=== PATIENT | female | born 1995 | race American Indian/Alaskan Native ===

== ENCOUNTER 2021-06-15 09:54 | Emergency (ER) | payer OTHER ==
[2021-06-15 10:45] VITALS: BP 92/54
--- NOTE | 2021-06-15 11:00 | Emergency Department Report ---
ED Eye Problem HPI - General Chief complaint: Eye Problems Stated complaint: LASH GLUE(R) EYE SHUT Time Seen by Provider: 06/15/21 10:55 Source: patient Mode of arrival: Ambulatory Limitations: No Limitations - History of Present Illness Initial comments: Patient is a 25-year-old female who presents emergency room complaints of right eyelid irritation that occurred 2 days ago. Patient states 2 days ago she used a lash glue that she had never used before. She states that it was itching and irritated and she washed it off. She states that she did eyewash [id number] as well. She states that her eyelids have been swelling, crusting, drainage. She denies anything getting into the eye. She denies any vision changes. She denies any contact lens use. No past medical history. No allergies to medications. - Related Data Previous Rx's Medication Instructions Recorded Last Taken Type Erythromycin [Erythromycin Ophth 1 applicatio OD QID 7 Days #1 tube 06/15/21 Unknown Rx Oint] Allergies Allergy/AdvReac Type Severity Reaction Status Date / Time No Known Allergies Allergy Unverified 06/15/21 10:40 ED Review of Systems ROS: Stated complaint: LASH GLUE(R) EYE SHUT Other details as noted in HPI Comment: All other systems reviewed and negative ED Past Medical Hx - Past Medical History Previous Medical History?: No - Surgical History Past Surgical History?: No - Medications Home Medications: Home Medications Medication Instructions Recorded Confirmed Last Taken Type Erythromycin [Erythromycin Ophth 1 applicatio OD QID 7 Days #1 tube 06/15/21 Unknown Rx Oint] ED Physical Exam - General Limitations: No Limitations General appearance: alert, in no apparent distress - Head Head exam: Present: atraumatic, normocephalic - Eye Eye exam: Present: PERRL, EOMI, other (the upper and lower eyelids have mild edema, erythema, mucus crusting, eyelash matting, no visualized foreign bodies, no induration or fluctuance). Absent: scleral icterus, conjunctival injection - ENT ENT exam: Present: mucous membranes moist - Respiratory Respiratory exam: Absent: respiratory distress, accessory muscle use - Neurological Exam Neurological exam: Present: alert, oriented X3 - Psychiatric Psychiatric exam: Present: normal affect, normal mood - Skin Skin exam: Present: warm, dry ED Course Vital Signs 06/15/21 10:43 Temperature 98.2 F Pulse Rate 72 Respiratory 18 Rate Blood Pressure 92/54 [Right] O2 Sat by Pulse 98 Oximetry ED Medical Decision Making - Medical Decision Making Patient is a 25-year-old female who presents emergency room complaints of right eyelid irritation that occurred 2 days ago. Patient states 2 days ago she used a lash glue that she had never used before. She states that it was itching and irritated and she washed it off. She states that she did eyewash [id number] as well. She states that her eyelids have been swelling, crusting, drainage. She denies anything getting into the eye. She denies any vision changes. She denies any contact lens use. No past medical history. No allergies to medications. vss. on exam: the upper and lower eyelids have mild edema, erythema, mucus crusting, eyelash matting, no visualized foreign bodies, no induration or fluctuance. Examination appears most consistent with blepharitis. Patient given prescription for medication. Advised patient Please use medication as prescribed. Please use a Q-tip and a no tear shampoo and close your eyes and wash your eyelashes twice a day. May use warm compresses 3 times a day. Please do not use lash glue again. Follow-up with brake holder. Return to emergency room for any new or worsening symptoms. Critical care attestation.: If time is entered above; I have spent that time in minutes in the direct care of this critically ill patient, excluding procedure time. ED Disposition Clinical Impression: Blepharitis Qualifiers: Blepharitis type: unspecified type Laterality: right Eyelid: both upper and lower Qualified Code(s): H01.00A - Unspecified blepharitis right eye, upper and lower eyelids Disposition: 01 HOME / SELF CARE / HOMELESS Is pt being admited?: No Does the pt Need Aspirin: No Condition: Stable Instructions: Blepharitis Additional Instructions: Please use medication as prescribed. Please use a Q-tip and a no tear shampoo and close your eyes and wash your eyelashes twice a day. May use warm compresses 3 times a day. Please do not use lash glue again. Follow-up with brake holder. Return to emergency room for any new or worsening symptoms. Prescriptions: Erythromycin [Erythromycin Ophth Oint] 1 applicatio OD QID 7 Days #1 tube Referrals: [facility] [Provider Group] - 3-5 Days KAYLEY MATHEWS MD [Staff Physician] - 3-5 Days Time of Disposition: 10:58 Print Language: MALIAN
== END 2021-06-15 11:14 | disposition home or self-care (01) ==
LOC: ED 09:54
DX: H01.00A Unspecified blepharitis right eye, upper and lower eyelids (principal); Z79.899 Other long term (current) drug therapy
CPT/HCPCS: 99281